=== PATIENT | male | born 1975 | race Caucasian/White ===

== ENCOUNTER 2023-12-20 08:41 | Inpatient (IN) | payer SELFPAY ==
[~2023-12-20] VITALS: Ht 172.7 cm; Wt 99.3 kg
[2023-12-20 09:16] LABS: HEMATOCRIT. 41.7 % (42.0-52.0); HEMOGLOBIN. 14.7 g/dL (14.0-18.0); MEAN CORPUSCULAR HEMOGLOBIN 29.9 pg (28.0-32.0); MEAN CORPUSCULAR HGB CONC 35.3 g/dL (31.0-37.0); MEAN CORPUSCULAR VOLUME 84.9 fL (80.0-94.0); MEAN PLATELET VOLUME 9.2 fl (7.4-10.4); PLATELET 230 x1000/uL (130-400); RED BLOOD CELL COUNT 4.91 mill/uL (4.7-6.1); RED CELL DISTRIBUTION WIDTH 15.7 % (11.6-14.6); WHITE BLOOD COUNT 7.5 x1000/uL (4.5-11.0)
[2023-12-20 09:26] LABS: DIFFERENTIAL COMMENT 1
[2023-12-20 09:30] LABS: CHLORIDE 81 mEq/L (98-107)
[2023-12-20 09:31] LABS: CALCIUM 8.2 mg/dL (8.7-10.4); CARBON DIOXIDE 31 mEq/L (21-32)
[2023-12-20 09:36] LABS: CREATININE 0.7 mg/dL (0.6-1.3); GLUCOSE 103 mg/dL (70-105); UREA NITROGEN BLOOD 8 mg/dL (9-23)
[2023-12-20 09:56] LABS: SODIUM 118 mEq/L (136-145)
[2023-12-20 09:57] LABS: POTASSIUM 2.7 mEq/L (3.5-5.1)
[2023-12-20 10:03] LABS: PLATELET ESTIMATE NORMAL; TOXIC VACUOLATION 1+
[2023-12-20 10:04] LABS: ANISOCYTOSIS 1+
[2023-12-20] MEDS: AZITHROMYCIN 500MG/250ML 250 ML IV SCH (10:36)
[2023-12-20 10:45] LABS: TROPONIN I HIGH SENSITIVITY 5 ng/L (3.0-53)
[2023-12-20 10:46] LABS: ALANINE AMINOTRANSFERASE 65 IU/L (10-49); ALBUMIN 3.8 g/dL (3.2-4.8); ASPARTATE AMINOTRANSFERASE 207 IU/L (<34); BILIRUBIN DIRECT 0.5 mg/dL (<=3.0); LACTATE DEHYDROGENASE 681 IU/L (120-246); PHOSPHORUS 2.2 mg/dL (2.5-4.9)
[2023-12-20 10:47] LABS: PROTEIN TOTAL 6.9 g/dL (6.0-8.3)
[2023-12-20] MEDS: POTASSIUM CHLORIDE 20MEQ TABLET SR PO ONE (10:55)
[2023-12-20 10:57] LABS: CREATINE KINASE 3677 IU/L (46-171)
[2023-12-20 11:02] LABS: ETHANOL BLOOD < 10 mg/dL (<10)
[2023-12-20] MEDS: KCL 10MEQ/50ML PREMIX 50 ML IV SCH (11:30)
[2023-12-20] MEDS: CEFTRIAXONE 2GM/50ML 50 ML IV ONE (11:30)
[2023-12-20] MEDS: CALCIUM GLUCONATE 1GM PREMIX 50 ML IV ONE (12:40)
[2023-12-20] MEDS ORDERED: ACETAMINOPHEN 325MG TABLET PO PRN ×2 (13:45)
[2023-12-20] MEDS ORDERED: LACTATED RINGERS 1,000 ML IV SCH ×2 (13:45→14:00)
[2023-12-20] MEDS ORDERED: IPRATROPIUM/ALBUTEROL 0.5-3(2.5)MG/3ML NEB HHN PRN (13:45)
[2023-12-20] MEDS ORDERED: MAGNESIUM/ALUMINUM HYDROXIDE/SIMETHICONE 30ML UDC PO PRN (13:45)
[2023-12-20] MEDS ORDERED: DOCUSATE SODIUM 100MG CAPSULE PO PRN (13:45)
[2023-12-20] MEDS ORDERED: ONDANSETRON HCL 4MG/2ML INJ IV PRN (13:45)
[2023-12-20] MEDS ORDERED: CLONIDINE 0.1MG TABLET PO PRN (13:45)
[2023-12-20] MEDS ORDERED: GUAIFENESIN 200MG/10ML SUGAR FREE UDC PO PRN (13:45)
[2023-12-20] MEDS ORDERED: DEXTROSE 50% WATER 50ML SYRINGE IV PRN (14:00)
[2023-12-20 14:38] LABS: CLARITY URINE CLEAR (CLEAR); COLOR URINE YELLOW (YELLOW); GLUCOSE URINE NEGATIVE (NEGATIVE); KETONES URINE NEGATIVE (NEGATIVE); LEUKOCYTE ESTERASE URINE NEGATIVE (NEGATIVE); NITRITE URINE NEGATIVE (NEGATIVE); OCCULT BLOOD URINE NEGATIVE (NEGATIVE); PH URINE 6.5 (4.5-8.0); PROTEIN URINE TRACE (NEGATIVE); SPECIFIC GRAVITY URINE 1.011 (1.005-1.030)
[2023-12-20 14:49] LABS: *AMPHETAMINES SCREEN URINE NEGATIVE (NEGATIVE); *BENZODIAZEPINES SCREEN URINE NEGATIVE (NEGATIVE)
[2023-12-20 14:50] LABS: *BARBITURATES SCREEN URINE NEGATIVE (NEGATIVE); *COCAINE SCREEN URINE PRESUMPTIVE POSITIVE (NEGATIVE); BACTERIA URINE NONE SEEN; CANNABINOID URINE SCREEN PRESUMPTIVE POSITIVE (NEGATIVE); ECSTASY MDMA SCREEN URINE NEGATIVE (NEGATIVE); METHADONE URINE SCREEN NEGATIVE (NEGATIVE); OPIATES URINE SCREEN NEGATIVE (NEGATIVE); PHENCYCLIDINE URINE SCREEN NEGATIVE (NEGATIVE); RBC URINE 0-2 /hpf (0-2); SQUAMOUS EPITHELIAL CELL URINE 1+ /lpf (RARE/1+); YEAST URINE NONE SEEN
[2023-12-20 14:51] LABS: CREATININE URINE RANDOM 91.7 mg/dL; UREA NITROGEN URINE RANDOM 534 mg/dL
[2023-12-20 14:52] LABS: SODIUM URINE RANDOM < 10 mEq/L
[2023-12-20 14:53] LABS: IRON 47 ug/dL (65-175)
[2023-12-20 14:56] LABS: TOTAL IRON BINDING CAPACITY 499 ug/dl (250-425)
[2023-12-20 14:59] LABS: FERRITIN 1455 ng/mL (22-322); FOLIC ACID (FOLATE) SERUM 5.68 ng/mL (>5.38); VITAMIN B12 SERUM 497 pg/mL (211-911)
[2023-12-20] MEDS: BLOOD SUGAR DIAGNOSTIC STRIP TEST SCH (15:10)
[2023-12-20] MEDS: INSULIN LISPRO 100 UNITS/ML SUBCUT SCH (15:10)
[2023-12-20] MEDS: SODIUM CHLORIDE 0.9% 1,000 ML IV SCH (15:18)
[2023-12-20] MEDS: PANTOPRAZOLE 40MG DR TABLET PO SCH (15:18)
[2023-12-20 15:28] LABS: OSMOLALITY URINE 352 mOsm/kg (500-850)
[2023-12-20 15:39] LABS: CREATINE KINASE 2652 IU/L (46-171)
[2023-12-20 20:00] VITALS: BP 124/71; PULSE 88; PULSE 89; RESP 18; RESP 21; TEMP 98.6
[2023-12-20 22:00] VITALS: PULSE 95; RESP 29
[2023-12-21] VITALS (12 sets, daily range): BP systolic 120–154; BP diastolic 57–99; PULSE 87–99; RESP 17–39; TEMP 97.3–97.9
[2023-12-21 00:50] LABS: CREATINE KINASE 1713 IU/L (46-171)
[2023-12-21 07:11] LABS: BASOPHILS % 0.5 % (0.0-2.0); HEMATOCRIT. 39.2 % (42.0-52.0); HEMOGLOBIN. 13.6 g/dL (14.0-18.0); LYMPHOCYTES % 13.5 % (20.0-50.0); MEAN CORPUSCULAR HEMOGLOBIN 29.7 pg (28.0-32.0); MEAN CORPUSCULAR HGB CONC 34.6 g/dL (31.0-37.0); MEAN CORPUSCULAR VOLUME 85.9 fL (80.0-94.0); MONOCYTES % 11.3 % (2.0-8.0); NEUTROPHILS % 73.7 % (40.0-76.0); PLATELET 246 x1000/uL (130-400); RED BLOOD CELL COUNT 4.57 mill/uL (4.7-6.1); RED CELL DISTRIBUTION WIDTH 15.9 % (11.6-14.6); WHITE BLOOD COUNT 6.1 x1000/uL (4.5-11.0)
[2023-12-21 07:25] LABS: CALCIUM 8.3 mg/dL (8.7-10.4); CHLORIDE 90 mEq/L (98-107); POTASSIUM 3.1 mEq/L (3.5-5.1)
[2023-12-21 07:26] LABS: CARBON DIOXIDE 31 mEq/L (21-32)
[2023-12-21 07:30] LABS: SODIUM 128 mEq/L (136-145)
[2023-12-21 07:31] LABS: CREATININE 0.6 mg/dL (0.6-1.3); GLUCOSE 104 mg/dL (70-105); TRIGLYCERIDE 199 mg/dL (0-150); UREA NITROGEN BLOOD 6 mg/dL (9-23)
[2023-12-21 07:32] LABS: ALANINE AMINOTRANSFERASE 58 IU/L (10-49); ALBUMIN 3.7 g/dL (3.2-4.8); ASPARTATE AMINOTRANSFERASE 129 IU/L (<34); LDL CHOLESTEROL 110 mg/dL (5-100); PROTEIN TOTAL 6.4 g/dL (6.0-8.3)
[2023-12-21 07:33] LABS: BILIRUBIN TOTAL 0.6 mg/dL (0.1-1.0); CHOLESTEROL 152 mg/dL (<200); HDL CHOLESTEROL < 20 mg/dL (>55); PHOSPHORUS 3.1 mg/dL (2.5-4.9)
[2023-12-21 07:34] LABS: T4 FREE 1.13 ng/dL (0.89-1.76); THYROID STIMULATING HORMONE 2.12 uIU/mL (0.55-4.78)
[2023-12-21] MEDS ORDERED: AZITHROMYCIN 500MG/250ML 250 ML IV SCH (08:00)
[2023-12-21] MEDS ORDERED: POTASSIUM CHLORIDE 40 MEQ in DEXT 5% WATER 230 ML IV ONE (08:30)
[2023-12-21] MEDS: POTASSIUM CHLORIDE 20MEQ/PACKET PO NR (08:39)
[2023-12-21] MEDS ORDERED: CEFTRIAXONE 1GM/50ML 50 ML IV SCH (09:00)
[2023-12-21] MEDS: KCL 20MEQ/100ML X 2 FOR TOTAL KCL 40MEQ/200ML IV SCH (10:00)
[2023-12-21] MEDS: AZITHROMYCIN 500MG/250ML 250 ML IV SCH (10:01)
[2023-12-21] MEDS: CEFTRIAXONE 1GM/50ML 50 ML IV SCH (10:02)
[2023-12-21] MEDS: FOLIC ACID 1 MG, THIAMINE HCL 100 MG, MVI, ADULT NO.1 10 ML in DEXTROSE 5% WATER 1,000 ML IV ONE (13:17)
[2023-12-22] VITALS (7 sets, daily range): BP systolic 124–178; BP diastolic 67–123; PULSE 89–94; RESP 20–30; TEMP 97–98.4; O2SAT 95
[2023-12-22 06:03] LABS: CARBON DIOXIDE 27 mEq/L (21-32); CHLORIDE 97 mEq/L (98-107); POTASSIUM 3.7 mEq/L (3.5-5.1); SODIUM 129 mEq/L (136-145)
[2023-12-22 06:04] LABS: CALCIUM 8.5 mg/dL (8.7-10.4)
[2023-12-22 06:30] LABS: HEMATOCRIT 39.1 % (42.0-52.0); HEMOGLOBIN 13.5 g/dL (14.0-18.0); MEAN CORPUSCULAR HEMOGLOBIN 30.2 pg (28.0-32.0); MEAN CORPUSCULAR HGB CONC 34.6 g/dL (31.0-37.0); MEAN CORPUSCULAR VOLUME 87.4 fL (80.0-94.0); PLATELET 308 x1000/uL (130-400); RED BLOOD CELL COUNT 4.48 mill/uL (4.7-6.1); RED CELL DISTRIBUTION WIDTH 15.6 % (11.6-14.6); WHITE BLOOD COUNT 6.3 x1000/uL (4.5-11.0)
[2023-12-22 07:14] LABS: CREATININE 0.6 mg/dL (0.6-1.3); GLUCOSE 106 mg/dL (70-105); UREA NITROGEN BLOOD 6 mg/dL (9-23)
[2023-12-22 07:16] LABS: PHOSPHORUS 3.5 mg/dL (2.5-4.9)
[2023-12-22] MEDS ORDERED: FAMOTIDINE 20MG TABLET PO SCH (09:00)
[2023-12-22] MEDS: SODIUM CHLORIDE 0.9% 1,000 ML IV SCH (10:25)
== END 2023-12-22 12:56 | disposition home or self-care (01) | DRG 351 ==
LOC: ER 08:41 → EDBEDREQTM 11:50 → EDBEDREQ 11:50 → 5EST 19:53 → 6WST 12-22 08:49
PROVIDERS: ADMIT Internal Medicine; ATTEND Internal Medicine
DX: M62.82 Rhabdomyolysis (principal); N17.0 Acute kidney failure with tubular necrosis; J69.0 Pneumonitis due to inhalation of food and vomit; E87.8 Other disorders of electrolyte and fluid balance, not elsewhere classified; E16.1 Other hypoglycemia; E83.39 Other disorders of phosphorus metabolism; E83.51 Hypocalcemia; E66.9 Obesity, unspecified; E78.1 Pure hyperglyceridemia; R73.03 Prediabetes; Z20.822 Contact with and (suspected) exposure to COVID-19; R74.01 Elevation of levels of liver transaminase levels; E87.1 Hypo-osmolality and hyponatremia; R00.0 Tachycardia, unspecified; E87.6 Hypokalemia; F10.10 Alcohol abuse, uncomplicated; F12.90 Cannabis use, unspecified, uncomplicated; F17.210 Nicotine dependence, cigarettes, uncomplicated; Z68.33 Body mass index [BMI] 33.0-33.9, adult; Z86.16 Personal history of COVID-19
CPT/HCPCS: 36415; 71045; 76700; 80048; 80053; 80061; 80076; 80305; 80320; 81003; 82306; 82330; 82550; 82570; 82607; 82728; 82746; 82962; 83036; 83540; 83550; 83605; 83615; 83735; 83930; 83935; 83970; 84100; 84300; 84439; 84443; 84484; 84540; 85025; 85027; 87420; 87426; 87804; 93005; 93970; 97165; 99291; 99292; J0456; J0610; J0696; J3411; J3480; J3490; J7030; J7070; G0480